=== PATIENT | female | born 1950 | race Caucasian/White ===

== ENCOUNTER → 2017-09-18 16:08 | Outpatient (CLI) | payer MEDICARE, OTHER, SELFPAY ==
[2017-09-18 16:27] LABS: Add Manual Diff / Slide Review NO; Basophils Percent Auto 0.6 % (0-2); Eosinophils Percent Auto 2.7 % (2-4); Hemoglobin 11.3 g/dL (12.0-16.0); Lymphocytes Percent Auto 19.8 % (25-40); Mean Corpuscular HGB Conc 33.3 % (30-36); Mean Corpuscular Hemoglobin 30.6 PG (26-34); Mean Corpuscular Volume 91.8 fL (80-100); Monocytes Percent Auto 7.2 % (3-14); Neutrophils Absolute Auto 4700 /uL (3000-5900); Neutrophils Percent Auto 69.7 % (50-75); Platelet Count 263 X10^3/uL (150-400); Red Cell Distribution Width 13.1 % (11.6-14.8); White Blood Cell Count 6.8 X10^3/uL (4.5-11.0)
[2017-09-18 16:41] LABS: Cholesterol 200 mg/dL (140-199); HDL Cholesterol 51 mg/dL (40-60); LDL Cholesterol Calculated 115 mg/dL (<100); Triglycerides 168 mg/dL (35-150)
[2017-09-18 16:43] LABS: Hemoglobin A1C% w Est Avg Glu 9.6 % (4.0-6.0)
[2017-09-18 18:00] LABS: Thyroid Stimulating Hormone 1.99 uIU/mL (0.47-4.68)
== END ==
PROVIDERS: Family Provider Family Medicine; PCP Family Medicine; Visit Provider Family Medicine
DX: E11.9 Type 2 diabetes mellitus without complications (principal)
CPT/HCPCS: 36415; 80061; 83036; 84443; 85025

== ENCOUNTER → 2018-06-09 15:57 | Outpatient (CLI) | payer MEDICARE, OTHER, SELFPAY ==
[2018-06-09 16:14] LABS: Add Manual Diff / Slide Review NO; Basophils Absolute Auto 100 /uL (0-100); Basophils Percent Auto 0.7 % (0-2); Eosinophils Absolute Auto 200 /uL (0-450); Eosinophils Percent Auto 2.7 % (2-4); Hematocrit 32.6 % (36-46); Hemoglobin 10.5 g/dL (12.0-16.0); Lymphocytes Absolute Auto 1300 /uL (1100-4500); Lymphocytes Percent Auto 14.9 % (25-40); Mean Corpuscular HGB Conc 32.4 % (30-36); Mean Corpuscular Hemoglobin 30.6 PG (26-34); Mean Corpuscular Volume 94.4 fL (80-100); Monocytes Absolute Auto 600 /uL (0-900); Monocytes Percent Auto 6.8 % (3-14); Neutrophils Absolute Auto 6400 /uL (1500-7000); Neutrophils Percent Auto 74.9 % (50-75); Platelet Count 411 X10^3/uL (150-400); Red Blood Cell Count 3.45 X10^6/uL (4.0-5.2); Red Cell Distribution Width 14.2 % (11.6-14.8); White Blood Cell Count 8.5 X10^3/uL (4.5-11.0)
[2018-06-09 16:25] LABS: Hemoglobin A1C% w Est Avg Glu 7.6 % (4.0-6.0)
[2018-06-09 18:02] LABS: Alanine Aminotransferase 27 IU/L (9-52); Albumin 3.8 g/dL (3.5-5.0); Albumin Globulin Ratio 1.4 (1.0-2.8); Alkaline Phosphatase 54 U/L (38-126); Aspartate Aminotransferase 24 IU/L (14-36); Bilirubin Total 0.4 mg/dL (0.2-1.3); Blood Urea Nitrogen 21 mg/dL (7-17); Calcium 9.2 mg/dL (8.4-10.2); Carbon Dioxide 29 mmol/L (22-32); Chloride 96 mmol/L (98-107); Estimated Glomerular Filt Rate > 60.0 mL/min (>60); Globulin 2.7 g/dL (1.7-4.1); Glucose 128 mg/dL (80-110); HEMOLYSIS < 15 (0-50); Potassium 3.6 mmol/L (3.4-5.1); Sodium 136 mmol/L (137-145); Total Protein 6.5 g/dL (6.3-8.2)
[2018-06-09 18:32] LABS: Thyroid Stimulating Hormone 1.25 uIU/mL (0.47-4.68)
== END ==
PROVIDERS: PCP Family Medicine; Visit Provider Family Medicine
DX: E11.9 Type 2 diabetes mellitus without complications (principal)
CPT/HCPCS: 36415; 80053; 83036; 84443; 85025

== ENCOUNTER → 2018-10-06 15:54 | Outpatient (CLI) | payer MEDICARE, OTHER, SELFPAY ==
[2018-10-06 18:38] LABS: Alanine Aminotransferase 9 IU/L (9-52); Albumin 4.7 g/dL (3.5-5.0); Albumin Globulin Ratio 1.3 (1.0-2.8); Alkaline Phosphatase 85 U/L (38-126); Aspartate Aminotransferase 27 IU/L (14-36); BUN Creatinine Ratio 23.3 (6-22); Bilirubin Total 0.5 mg/dL (0.2-1.3); Blood Urea Nitrogen 14 mg/dL (7-17); Calcium 11.1 mg/dL (8.4-10.2); Carbon Dioxide 32 mmol/L (22-32); Chloride 97 mmol/L (98-107); Estimated Glomerular Filt Rate > 60.0 mL/min (>60); Globulin 3.6 g/dL (1.7-4.1); Glucose 158 mg/dL (80-110); HEMOLYSIS 17 (0-50); Magnesium 1.5 mg/dL (1.6-2.3); Potassium 3.8 mmol/L (3.4-5.1); Sodium 140 mmol/L (137-145); Total Protein 8.3 g/dL (6.3-8.2)
[2018-10-06 19:07] LABS: Thyroid Stimulating Hormone 1.18 uIU/mL (0.47-4.68)
== END ==
PROVIDERS: PCP Family Medicine; Visit Provider Family Medicine
DX: E11.9 Type 2 diabetes mellitus without complications (principal)
CPT/HCPCS: 36415; 80053; 83036; 83735; 84443

== ENCOUNTER → 2020-03-16 15:12 | Outpatient (CLI) | payer MEDICARE, OTHER, SELFPAY ==
[2020-03-16 16:41] LABS: Hemoglobin A1C% w Est Avg Glu 12.3 % (4.0-6.0)
[2020-03-16 17:47] LABS: Alanine Aminotransferase 7 IU/L (<35); Albumin 4.2 g/dL (3.5-5.0); Albumin Globulin Ratio 1.3 (1.0-2.8); Alkaline Phosphatase 79 U/L (38-126); Aspartate Aminotransferase 16 IU/L (14-36); BUN Creatinine Ratio 19.7 (6-22); Bilirubin Total 0.5 mg/dL (0.2-1.3); Blood Urea Nitrogen 12 mg/dL (7-17); Calcium 9.4 mg/dL (8.4-10.2); Carbon Dioxide 28 mmol/L (22-32); Chloride 96 mmol/L (98-107); Cholesterol 239 mg/dL (140-199); Estimated Glomerular Filt Rate > 60.0 mL/min (>60); Globulin 3.3 g/dL (1.7-4.1); Glucose 356 mg/dL (80-110); HDL Cholesterol 40 mg/dL (40-60); HEMOLYSIS < 15 (0-50); Potassium 4.1 mmol/L (3.4-5.1); Sodium 131 mmol/L (137-145); Total Protein 7.5 g/dL (6.3-8.2)
[2020-03-16 17:50] LABS: Creatinine Urine Random 52.7 mg/dL
[2020-03-16 17:53] LABS: Microalbumi Creatinin Ratio Ur 85.3 ug/mg CR (<30); Microalbumin Urine Random 4.5 mg/dL (0-1.6)
[2020-03-16 18:01] LABS: Triglycerides 601 mg/dL (35-150)
== END ==
PROVIDERS: PCP Family Medicine; Referring Provider Family Medicine; Visit Provider Family Medicine
DX: E11.9 Type 2 diabetes mellitus without complications (principal); F32.9 Major depressive disorder, single episode, unspecified; F90.9 Attention-deficit hyperactivity disorder, unspecified type
CPT/HCPCS: 36415; 80053; 80061; 82043; 82570; 83036

== ENCOUNTER → 2020-05-18 13:36 | Outpatient (CLI) | payer MEDICARE, OTHER, SELFPAY ==
[2020-05-18 14:57] LABS: Add Manual Diff / Slide Review NO; Basophils Absolute Auto 0 /uL (0-100); Basophils Percent Auto 0.3 % (0-2); Eosinophils Absolute Auto 300 /uL (0-450); Eosinophils Percent Auto 4.6 % (2-4); Hematocrit 34.1 % (36-46); Hemoglobin 11.1 g/dL (12.0-16.0); Lymphocytes Absolute Auto 1500 /uL (1100-4500); Lymphocytes Percent Auto 20.1 % (25-40); Mean Corpuscular HGB Conc 32.5 % (30-36); Mean Corpuscular Hemoglobin 29.4 PG (26-34); Mean Corpuscular Volume 90.5 fL (80-100); Monocytes Absolute Auto 500 /uL (0-900); Monocytes Percent Auto 7.3 % (3-14); Neutrophils Absolute Auto 4900 /uL (1500-7000); Neutrophils Percent Auto 67.7 % (50-75); Platelet Count 293 X10^3/uL (150-400); Red Blood Cell Count 3.77 X10^6/uL (4.0-5.2); Red Cell Distribution Width 13.6 % (11.6-14.8); White Blood Cell Count 7.3 X10^3/uL (4.5-11.0)
[2020-05-18 15:11] LABS: Hemoglobin A1C% w Est Avg Glu 10.8 % (4.0-6.0)
== END ==
PROVIDERS: PCP Family Medicine; Referring Provider Family Medicine; Visit Provider Family Medicine
DX: E11.9 Type 2 diabetes mellitus without complications (principal); E78.5 Hyperlipidemia, unspecified; R80.9 Proteinuria, unspecified; Z79.4 Long term (current) use of insulin
CPT/HCPCS: 36415; 83036; 85025

== ENCOUNTER → 2020-08-09 15:37 | Outpatient (CLI) | payer MEDICARE, OTHER, SELFPAY ==
[2020-08-09 17:27] LABS: Add Manual Diff / Slide Review NO; Basophils Absolute Auto 0 /uL (0-100); Basophils Percent Auto 0.6 % (0-2); Eosinophils Absolute Auto 200 /uL (0-450); Eosinophils Percent Auto 3.2 % (2-4); Hematocrit 32.9 % (36-46); Hemoglobin 10.8 g/dL (12.0-16.0); Lymphocytes Absolute Auto 1000 /uL (1100-4500); Lymphocytes Percent Auto 16.3 % (25-40); Mean Corpuscular HGB Conc 32.9 % (30-36); Mean Corpuscular Hemoglobin 29.5 PG (26-34); Mean Corpuscular Volume 89.7 fL (80-100); Monocytes Absolute Auto 500 /uL (0-900); Monocytes Percent Auto 7.6 % (3-14); Neutrophils Absolute Auto 4600 /uL (1500-7000); Neutrophils Percent Auto 72.3 % (50-75); Platelet Count 286 X10^3/uL (150-400); Red Blood Cell Count 3.66 X10^6/uL (4.0-5.2); Red Cell Distribution Width 14.7 % (11.6-14.8); White Blood Cell Count 6.3 X10^3/uL (4.5-11.0)
[2020-08-09 17:40] LABS: Hemoglobin A1C% w Est Avg Glu 11.3 % (4.0-6.0)
== END ==
PROVIDERS: PCP Family Medicine; Referring Provider Family Medicine; Visit Provider Family Medicine
DX: D64.9 Anemia, unspecified (principal); E11.9 Type 2 diabetes mellitus without complications; G47.9 Sleep disorder, unspecified; Z79.4 Long term (current) use of insulin
CPT/HCPCS: 36415; 83036; 85025

== ENCOUNTER → 2021-03-14 15:44 | Outpatient (CLI) | payer MEDICARE, OTHER, SELFPAY ==
--- NOTE | 2021-03-14 15:48 | DI.RAD.S_ITS ---
PROCEDURE: XR ELBOW LT 2V INDICATIONS: left arm, shoulder, elbow pain after fall TECHNIQUE: 2 views of the elbow were acquired. COMPARISON: None. FINDINGS: Bones: No obvious fractures or dislocations. There is no true lateral image. The radial head is not visualized, in the elbow joint is not evaluated for infusion. No suspicious bony lesions. Soft tissues: No elbow joint effusion. No suspicious soft tissue calcifications. IMPRESSION: Suboptimal elbow films with no true lateral. Cannot evaluate the presence or absence of an elbow joint effusion. Radial head not visualized. No gross fractures or dislocations. Consider repeat study. Dictated by: Juan Godoy M.D. on 03/14/2021 at 16:36 Approved by: Juan Godoy M.D. on 03/14/2021 at 16:37
--- NOTE | 2021-03-14 15:48 | DI.RAD.S_ITS ---
PROCEDURE: XR HUMERUS LT 2V INDICATIONS: left arm, shoulder, elbow pain after fall TECHNIQUE: 2 views of the humerus were acquired. COMPARISON: None. FINDINGS: Bones: There is acute impacted and slightly comminuted fracture through left proximal humeral shaft/surgical neck with superior migration of humeral shaft in relation to humeral head. Moderate acromioclavicular joint and glenohumeral joint osteoarthritic changes are seen. No dislocation. No suspicious bony lesions. Soft tissues: No suspicious soft tissue calcifications. Soft tissue swelling surrounding proximal humeral shaft fracture site is seen. IMPRESSION: Acute comminuted, and impacted left proximal humeral shaft/neck fracture as above. Moderate shoulder joint osteoarthritis. Dictated by: Michel Duron M.D. on 03/14/2021 at 17:01 Approved by: Michel Duron M.D. on 03/14/2021 at 17:02
--- NOTE | 2021-03-14 15:48 | DI.RAD.S_ITS ---
PROCEDURE: XR SHOULDER LT MIN 2V INDICATIONS: left arm, shoulder, elbow pain after fall TECHNIQUE: 2 views of the shoulder were acquired. COMPARISON: [facility], CR, XR CHEST 1 VIEW, 01/11/2021, 17:53. [facility], CR, XR HUMERUS LT 2V, 03/14/2021, 15:54. FINDINGS: Bones: Impacted comminuted fracture of the left humeral head. There is mild displacement. There is inferior displacement of the humeral head in relation to the glenoid. This is concerning for dislocation. No suspicious bony lesions. Undulation of the left inferior lateral ribs likely nondisplaced fractures. Soft tissues: No suspicious soft tissue calcifications. IMPRESSION: Impacted comminuted fracture of the left humeral head. Suspect inferior and possible anterior dislocation. Left inferior lateral rib fractures. Dictated by: Clif Camilo M.D. on 03/14/2021 at 16:51 Approved by: Clif Camilo M.D. on 03/14/2021 at 16:56
[2021-03-14 17:17] LABS: Add Manual Diff / Slide Review NO; Basophils Absolute Auto 0 /uL (0-100); Basophils Percent Auto 0.3 % (0-2); Eosinophils Absolute Auto 200 /uL (0-450); Eosinophils Percent Auto 3.3 % (2-4); Hemoglobin 8.9 g/dL (12.0-16.0); Lymphocytes Absolute Auto 1200 /uL (1100-4500); Lymphocytes Percent Auto 16.2 % (25-40); Mean Corpuscular HGB Conc 31.9 % (30-36); Mean Corpuscular Hemoglobin 29.1 PG (26-34); Mean Corpuscular Volume 91.2 fL (80-100); Monocytes Absolute Auto 600 /uL (0-900); Monocytes Percent Auto 7.8 % (3-14); Neutrophils Absolute Auto 5300 /uL (1500-7000); Neutrophils Percent Auto 72.4 % (50-75); Platelet Count 340 X10^3/uL (150-400); Red Blood Cell Count 3.07 X10^6/uL (4.0-5.2); Red Cell Distribution Width 16.3 % (11.6-14.8); White Blood Cell Count 7.3 X10^3/uL (4.5-11.0)
[2021-03-14 18:17] LABS: Alanine Aminotransferase 10 IU/L (<35); Albumin 4.3 g/dL (3.5-5.0); Albumin Globulin Ratio 1.3 (1.0-2.8); Alkaline Phosphatase 90 U/L (38-126); Aspartate Aminotransferase 19 IU/L (14-36); BUN Creatinine Ratio 29.1 (6-22); Bilirubin Total 0.4 mg/dL (0.2-1.3); Blood Urea Nitrogen 23 mg/dL (7-17); Calcium 9.7 mg/dL (8.4-10.2); Carbon Dioxide 18 mmol/L (22-32); Chloride 109 mmol/L (98-107); Estimated Glomerular Filt Rate > 60.0 mL/min (>60); Globulin 3.4 g/dL (1.7-4.1); Glucose 128 mg/dL (80-110); HEMOLYSIS < 15 (0-50); Sodium 138 mmol/L (137-145); Total Protein 7.7 g/dL (6.3-8.2)
[2021-03-15 13:51] LABS: Iron 20 ug/dL (37-170)
[2021-03-15 13:59] LABS: Transferrin 246 mg/dL (206-381)
[2021-03-15 14:28] LABS: Ferritin 85 ng/mL (11-264)
== END ==
PROVIDERS: PCP Family Medicine; Referring Provider Family Medicine; Visit Provider Family Medicine
DX: S42.352A Displaced comminuted fracture of shaft of humerus, left arm, initial encounter for closed fracture (principal); S42.212A Unspecified displaced fracture of surgical neck of left humerus, initial encounter for closed fracture; S22.42XA Multiple fractures of ribs, left side, initial encounter for closed fracture; S40.022A Contusion of left upper arm, initial encounter; M19.012 Primary osteoarthritis, left shoulder; M25.512 Pain in left shoulder; M25.522 Pain in left elbow; M79.602 Pain in left arm; D64.9 Anemia, unspecified; E11.9 Type 2 diabetes mellitus without complications; E78.2 Mixed hyperlipidemia; F33.1 Major depressive disorder, recurrent, moderate; F41.9 Anxiety disorder, unspecified; Z79.4 Long term (current) use of insulin; W19.XXXA Unspecified fall, initial encounter
CPT/HCPCS: 36415; 73030; 73060; 73070; 80053; 85025

== ENCOUNTER 2021-03-14 16:48 | Emergency (ER) | payer MEDICARE, OTHER, SELFPAY ==
[2021-03-14] VITALS (8 sets, daily range): BP systolic 107–134; BP diastolic 55–60; PULSE 72–84; RESP 16–27; TEMP 37.2; O2SAT 95–100; BMI 25.3
[2021-03-14] MEDS: SODIUM CHLORIDE 0.9% 1,000 ML 125 ML IV (18:58)
--- NOTE | 2021-03-14 19:13 | ED_ITS ---
HPI - General Adult General Chief complaint: Extremity Injury, Upper Stated complaint: lt arm injury Time Seen by Provider: 03/14/21 17:44 Source: patient and family Mode of arrival: Ambulatory Limitations: no limitations History of Present Illness HPI narrative: 71-year-old female who was sent over by her primary doctor for evaluation of a abnormal shoulder x-ray. Patient states that a couple days ago she tripped while she was at home and landed on her left shoulder. She had pain afterwards. Started to develop swelling and bruising. She told family about it a couple days later. She had an appointment with her primary doctor already scheduled for today. During that visit she did mention that she was having swelling and pain to her left shoulder. X-rays for ordered. After they were resulted she was instructed come to the emergency department. She reports no other injuries from the event. Her pain is localized to the left shoulder. She does have swelling to her left shoulder. The rest left upper arms unremarkable. Patient is not on blood thinners. Related Data Previous Rx's Medication Instructions Recorded BD U/F Leila Pen Needle #20 each 09/22/18 insulin glargine 100 unit/mL (3 25 unit (0.25 mL) SUBCUT HS #5 unit 03/22/20 mL) subcutaneous pen (Lantus Solostar U-100 Insulin) phenytoin sodium extended 100 mg 100 mg PO DAILY #360 cap 09/13/20 capsule (Dilantin Extended) duloxetine 20 mg capsule,delayed 60 mg PO DAILY #90 cap 10/02/20 release omeprazole 20 mg capsule,delayed 20 mg PO QDAY #90 cap 12/31/20 release glipizide 10 mg tablet See Rx Instructions .ROUTE 01/15/21 .COMPLEX #120 tab clonazepam 2 mg tablet See Rx Instructions .ROUTE 01/23/21 .COMPLEX #90 tab gabapentin 300 mg capsule See Rx Instructions .ROUTE 02/12/21 .COMPLEX #270 cap glucometer and test strips #1 ea 03/14/21 hydrocodone 5 mg-acetaminophen 325 1 tab PO Q4-6H PRN #10 tab 03/14/21 mg tablet rosuvastatin 10 mg tablet (Crestor) 10 mg PO DAILY #90 tab 03/14/21 temazepam 15 mg capsule 15 mg PO BEDTIME PRN #30 cap 03/14/21 Allergies Allergy/AdvReac Type Severity Reaction Status Date / Time acarbose Allergy Mild MOOD CHANGE Verified 03/14/21 17:03 codeine Allergy Mild ITCH/RASH Verified 03/14/21 17:03 morphine AdvReac Mild VOMITING Verified 03/14/21 17:03 Review of Systems Constitutional Constitutional: Denies headache(s) ENT Ears, Nose, Mouth, and Throat: Denies headache(s) Cardiovascular Cardiovascular: Denies chest pain and Denies dyspnea Respiratory Respiratory: Denies dyspnea Gastrointestinal Gastrointestinal: Denies abdominal pain Musculoskeletal Musculoskeletal: Reports system reviewed and no additional complaints, except as documented Integumentary/Breasts Skin/Breast: Reports system reviewed and no additional complaints, except as documented Neurologic Neurologic: Reports system reviewed and no additional complaints, except as documented and Denies headache(s) Hematologic/Lymphatic On Anticoagulants: No Patient History Medical History Albuminuria Cervical stenosis of spine Chronic pain disorder Hyperlipidemia 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 Social History Smoking Status: Former smoker Smoking Status: Former smoker Substance Use Type: does not use Exam Initial Vital Signs Initial Vital Signs: Vital Signs Temperature 98.9 F 03/14/21 17:01 Pulse Rate 79 03/14/21 17:01 Respiratory Rate 16 03/14/21 17:01 Blood Pressure 119/58 L 03/14/21 17:01 Pulse Oximetry 100 03/14/21 17:01 Const General: cooperative and well developed Limitations: mental status not altered HENMD Head: normal to inspection and normocephalic Chest Chest: normal inspection of the chest Resp Effort & Inspection: normal respiratory effort Auscultation: clear to auscultation bilaterally Cardio Rate: regular rate Rhythm: regular rhythm Pulses: radial pulses present on the left GI Inspection: non-distended Palpation: soft Skin Other: Ecchymosis to the left upper extremity Neuro General: patient alert, patient awake, patient oriented x3 and moves all extremities Extrem Other: Tenderness to palpation with limited range of motion left shoulder. Her left clavicles unremarkable. Her left elbow left wrist unremarkable. Right upper extremity and bilateral lower extremities unremarkable. Psych Appearance: grossly normal and well kempt Procedures Orthopedic Splinting/Casting Injury #1: Side: left Upper Extremity Injury Location: shoulder Upper Extremity Immobilizer: sling/shoulder immobilizer Post splinting neuro exam: no change Post splinting vascular exam: no change Placed by: Nursing Course Orders Ordered: ED Orders 03/14/21 18:18 RT Consult Eval and Treat Now 03/14/21 18:46 COVID19 -Nasal swab/Pre-Proc Stat 03/14/21 19:37 CT UE LT wo con Stat Discontinued Medications Hydrocodone Bitart/Acetaminophen (Hydrocodone/Acet 5/325 Tablet) 1 tab PO NOW ONE Stop: 03/14/21 19:42 Last Admin: 03/14/21 19:49 Dose: 1 tab Documented by: MITZI Hydrocodone Bitart/Acetaminophen (Hydrocodone/Acet 5/325 Prepack) 1 bottle MISC SEEINSTR ONE Stop: 03/14/21 20:37 Last Admin: 03/14/21 20:52 Dose: 1 bottle Documented by: MITZI Sodium Chloride (Normal Saline 0.9%) 1,000 mls @ 125 mls/hr IV CONT NICOLE Last Infusion: 03/14/21 21:12 Dose: 0 mls/hr Documented by: Admin: 03/14/21 18:58 Dose: 125 mls/hr Documented by: SILVERIO Vital Signs Vital signs: Vital Signs - 8 hr 03/14/21 17:01 03/14/21 19:03 03/14/21 19:06 Temperature 98.9 F Pulse Rate 79 74 72 Respiratory Rate 16 27 H 24 Blood Pressure 119/58 L 125/60 Pulse Oximetry 100 99 99 03/14/21 19:30 03/14/21 19:31 03/14/21 20:10 Temperature Pulse Rate 74 76 84 Respiratory Rate 25 H 27 H 18 Blood Pressure 115/56 L Pulse Oximetry 97 97 95 03/14/21 20:13 03/14/21 20:30 Temperature Pulse Rate 78 74 Respiratory Rate 22 27 H Blood Pressure 134/55 L 107/58 L Pulse Oximetry 99 99 Medical Decision Making Lab Data Lab results reviewed: Yes I reviewed the patient's lab results. Labs: Lab Results 03/14/21 Range/Units 18:46 SARS-CoV-2 (PCR) Negative (Negative) Imaging Data CT UE: Radiologist's Impression: [address] [address] [address] Scan Report Signed Patient: Bridget Pratt MR#: [id number] : 1950 Acct:[id number] Age/Sex: 71 / F Date of Service: 03/14/21 Loc: ED Accession Number: [id number] ?? Procedure: CT UE LT wo con Ordering Provider: Edgard Mcpherson D.O. PROCEDURE:? CT UE LT WO CON ? INDICATIONS:? eval for shoulder dislocation ? TECHNIQUE:? Noncontrast 1-1.5 mm thick sections acquired from the acromioclavicular joint to the inferior scapula, with coronal and sagittal reformatting.? ? COMPARISON:? None. ? FINDINGS:? Image quality:? Excellent.? ? Bones:? There is a comminuted, impacted left proximal humerus fracture involving the surgical neck and head.? There are no significantly displaced head fragments.? There is inferior subluxation of the humeral head without radhika dislocation, seen best on the coronal view.? The glenoid fossa is intact.? There is a prominent anterior inferior subcortical cyst. ? The acromioclavicular joint remains intact.? Coracoclavicular interval is normal.? The visible rib arcs are intact. ? Soft tissues:? There is chondrocalcinosis in the glenohumeral joint.? There is heterogeneous soft tissue in the superior joint space, probably small hemarthrosis.? ? ? IMPRESSION:? 1. Impacted surgical head and neck fracture with comminution.? No significantly displaced fragments.? Neer one part fracture.? 2.? Inferior subluxation without radhika dislocation of the glenohumeral joint, probably due to hemarthrosis.? 3. There is considerable chondrocalcinosis and glenohumeral joint osteoarthritis.? ? Dictated by: Tg Rivas M.D. on 03/14/2021 at 21:43? on 03/14/2021 at 21:37 Approved by: Tg Rivas M.D. on 03/14/2021 at 21:43? Extremity x-ray #1: Radiologist's Impression: [address] [address] XRay Report Signed Patient: Bridget Pratt MR#: [id number] : 1950 Acct:[id number] Age/Sex: 71 / F Date of Service: 03/14/21 Loc: LAB Accession Number: [id number] ?? Procedure: XR humerus LT 2V Ordering Provider: Malvin Purdy MD PROCEDURE:? XR HUMERUS LT 2V ? INDICATIONS:? left arm, shoulder, elbow pain after fall ? TECHNIQUE:? 2 views of the humerus were acquired.? ? COMPARISON:? None. ? FINDINGS:? ? Bones:? There is acute impacted and slightly comminuted fracture through left proximal humeral shaft/surgical neck with superior migration of humeral shaft in relation to humeral head.? Moderate acromioclavicular joint and glenohumeral joint osteoarthritic changes are seen.? No dislocation.? No suspicious bony lesions.? ? Soft tissues:? No suspicious soft tissue calcifications.? Soft tissue swelling surrounding proximal humeral shaft fracture site is seen. ? IMPRESSION:? Acute comminuted, and impacted left proximal humeral shaft/neck fracture as above.? Moderate shoulder joint osteoarthritis. ? ? Dictated by: Michel Duron M.D. on 03/14/2021 at 17:01 ? ? Approved by: Michel Duron M.D. on 03/14/2021 at 17:02 Extremity x-ray #2: Radiologist's Impression: [place] [address] XRay Report Signed Patient: Bridget Pratt MR#: [id number] : 1950 Acct:[id number] Age/Sex: 71 / F Date of Service: 03/14/21 Loc: LAB Accession Number: [id number] ?? Procedure: XR shoulder LT min 2V Ordering Provider: Malvin Purdy MD PROCEDURE:? XR SHOULDER LT MIN 2V ? INDICATIONS:? left arm, shoulder, elbow pain after fall ? TECHNIQUE:? 2 views of the shoulder were acquired.? ? COMPARISON:? [facility], CR, XR CHEST 1 VIEW, 01/11/2021, 17:53.? [facility], CR, XR HUMERUS LT 2V, 03/14/2021, 15:54. ? FINDINGS:? ? Bones:? Impacted comminuted fracture of the left humeral head.? There is mild displacement.? There is inferior displacement of the humeral head in relation to the glenoid.? This is concerning for dislocation.? No suspicious bony lesions.? Undulation of the left inferior lateral ribs likely nondisplaced fractures. ? Soft tissues:? No suspicious soft tissue calcifications.? ? IMPRESSION:? Impacted comminuted fracture of the left humeral head.? Suspect inferior and possible anterior dislocation. ? Left inferior lateral rib fractures. ? ? Dictated by: Clif Camilo M.D. on 03/14/2021 at 16:51 ? ? Approved by: Clif Camilo M.D. on 03/14/2021 at 16:56?? MDM Narrative Medical decision making narrative: Patient is neurovascularly intact. The shoulder x-ray and humerus x-ray provided in this note for reference purposes only. They were obtained prior to the visit here in the ER. There is no obvious proximal humerus fracture. There was some concern about a subluxation versus dislocation of the humeral head. I did discuss the case with Dr. Herman on-call with Orthopedic surgery who recommended CT scan of her shoulder for more in-depth evaluation. CT scan was ordered which does show a inferior subluxation but not a dislocation. Dr. Herman did evaluate the CT scan and the x-rays. Patient was placed in a sling. Was given care instructions and follow-up instructions. Both patient and family bedside expressed understanding and agree with this plan. Discharge Plan Departure Patient Disposition: Home Clinical Impression: Fracture of proximal end of left humerus Instructions: How to Use a Sling, DI for Shoulder Fracture Activity Restrictions/Additional Instructions: The sling should be worn when you are up and walking around and also sleeping. You can take it off to shower. Contact the orthopedic providers at the number provided below for follow-up. Return to the emergency department for any new or worsening symptoms. Prescriptions: New hydrocodone-acetaminophen 5-325 mg tablet 1 tab PO Q4-6H PRN (Reason: pain) Qty: 10 0RF No Action (DME) BD U/F Leila Pen Needle [id number] Qty: 20 3RF Dose Instruction: As directed Rx Instructions: Use with Lantus once a day. 09/22/18 Lantus Solostar U-100 Insulin 100 unit/mL (3 mL) insulin pen 25 unit SUBCUT HS Qty: 5 5RF phenytoin sodium extended [Dilantin Extended] 100 mg capsule 100 mg PO DAILY Qty: 360 5RF duloxetine 20 mg capsule,delayed release(DR/EC) 60 mg PO DAILY Qty: 90 5RF omeprazole 20 mg capsule,delayed release(DR/EC) 20 mg PO QDAY Qty: 90 3RF glipizide 10 mg tablet See Rx Instructions .ROUTE .COMPLEX Qty: 120 0RF Dose Instruction: take 1 tablet by mouth twice a day Rx Instructions: take 1 tablet by mouth twice a day clonazepam 2 mg tablet See Rx Instructions .ROUTE .COMPLEX Qty: 90 0RF Dose Instruction: take 1 tablet by mouth three times a day PLUS MAY TAKE ONE EXTRA TAB FOR ANXIETY ATTACKS DIRECTED Rx Instructions: take 1 tablet by mouth three times a day PLUS MAY TAKE ONE EXTRA TAB FOR ANXIETY ATTACKS DIRECTED gabapentin 300 mg capsule See Rx Instructions .ROUTE .COMPLEX Qty: 270 0RF Dose Instruction: take 1 tablet by mouth three times a day Rx Instructions: take 1 tablet by mouth three times a day temazepam 15 mg capsule 15 mg PO BEDTIME PRN (Reason: sleep) Qty: 30 0RF rosuvastatin [Crestor] 10 mg tablet 10 mg PO DAILY Qty: 90 3RF (DME) glucometer and test strips See Rx Instructions .Route .MEDSUPPLY Qty: 1 12RF Rx Instructions: As directed Referrals: Malvin Purdy MD [Primary Care Provider] - Sebastian Herman MD [Physician] -
[2021-03-14 19:14] LABS: COVID19 -Nasal RAPID Negative (Negative)
--- NOTE | 2021-03-14 19:37 | DI.CT.S_ITS ---
PROCEDURE: CT UE LT WO CON INDICATIONS: eval for shoulder dislocation TECHNIQUE: Noncontrast 1-1.5 mm thick sections acquired from the acromioclavicular joint to the inferior scapula, with coronal and sagittal reformatting. COMPARISON: None. FINDINGS: Image quality: Excellent. Bones: There is a comminuted, impacted left proximal humerus fracture involving the surgical neck and head. There are no significantly displaced head fragments. There is inferior subluxation of the humeral head without radhika dislocation, seen best on the coronal view. The glenoid fossa is intact. There is a prominent anterior inferior subcortical cyst. The acromioclavicular joint remains intact. Coracoclavicular interval is normal. The visible rib arcs are intact. Soft tissues: There is chondrocalcinosis in the glenohumeral joint. There is heterogeneous soft tissue in the superior joint space, probably small hemarthrosis. IMPRESSION: 1. Impacted surgical head and neck fracture with comminution. No significantly displaced fragments. Neer one part fracture. 2. Inferior subluxation without radhika dislocation of the glenohumeral joint, probably due to hemarthrosis. 3. There is considerable chondrocalcinosis and glenohumeral joint osteoarthritis. Dictated by: Tg Rivas M.D. on 03/14/2021 at 21:43 on 03/14/2021 at 21:37 Approved by: Tg Rivas M.D. on 03/14/2021 at 21:43
[2021-03-14] MEDS: HYDROCODONE/ACET 5/325 TABLET 1 TAB PO (19:49)
[2021-03-14] MEDS: HYDROCODONE/ACET 5/325 PREPACK 1 BOTTLE MISC (20:52)
== END 2021-03-14 21:11 | disposition home or self-care (01) ==
PROVIDERS: Emergency Provider Emergency Medicine; PCP Family Medicine
DX: S42.292A Other displaced fracture of upper end of left humerus, initial encounter for closed fracture (principal); Z88.5 Allergy status to narcotic agent; Z88.8 Allergy status to other drugs, medicaments and biological substances; Z87.891 Personal history of nicotine dependence; Z20.822 Contact with and (suspected) exposure to COVID-19; W18.40XA Slipping, tripping and stumbling without falling, unspecified, initial encounter; Y92.009 Unspecified place in unspecified non-institutional (private) residence as the place of occurrence of the external cause; S42.352A Displaced comminuted fracture of shaft of humerus, left arm, initial encounter for closed fracture; S42.212A Unspecified displaced fracture of surgical neck of left humerus, initial encounter for closed fracture; S22.42XA Multiple fractures of ribs, left side, initial encounter for closed fracture; S40.022A Contusion of left upper arm, initial encounter; M19.012 Primary osteoarthritis, left shoulder; M25.512 Pain in left shoulder; M25.522 Pain in left elbow; M79.602 Pain in left arm; D64.9 Anemia, unspecified; E11.9 Type 2 diabetes mellitus without complications; E78.2 Mixed hyperlipidemia; F33.1 Major depressive disorder, recurrent, moderate; F41.9 Anxiety disorder, unspecified; Z79.4 Long term (current) use of insulin; W19.XXXA Unspecified fall, initial encounter
CPT/HCPCS: 36415; 73030; 73060; 73070; 73200; 80053; 82728; 83540; 84466; 85025; 87635; 99284; C9803

== ENCOUNTER 2021-04-04 09:28 | Day surgery (SDC) | payer MEDICARE, OTHER, SELFPAY ==
[2021-04-04] VITALS (8 sets, daily range): BP systolic 121–168; BP diastolic 61–88; PULSE 72–97; RESP 12–18; TEMP 36–36.6; O2SAT 92–95; BMI 25.8
[2021-04-04 10:01] LABS: COVID19 -Nasal RAPID Negative (Negative)
[2021-04-04] MEDS: LACTATED RINGERS 1,000 ML 42 ML IV (11:06)
--- NOTE | 2021-04-04 11:39 | PM.PREOP ---
Pre-operative Note COVID-19 COVID-19 status: Negative Result date/Date tested (Pos, Neg/Pending): 04/03/21 Interval Note History & Physical reviewed/Exam performed by Physician: Yes Changes to H&P: No ASA Class (for procedural sedation): II
[2021-04-04] MEDS: LIDOCAINE 4% SOLN 50 ML 20 ML TOP (11:48)
[2021-04-04] MEDS: MIDAZOLAM 5 MG/5 ML VIAL IV (11:58)
[2021-04-04] MEDS: fentaNYL 250 MCG/5 ML INJ IV (11:58)
[2021-04-04] MEDS: DEXTROSE 5%-LACTATED RINGERS 1,000 ML 100 ML IV (12:08)
--- NOTE | 2021-04-04 13:22 | PM.OP.EC ---
Operative Date/Time/Diagnoses Date of procedure: 04/04/21 Time of procedure: 13:22 Pre-op diagnosis: Anemia Post-op diagnosis: same Procedure & Clinicians Study performed: EGD and colonoscopy Same procedure as scheduled: Yes Indications: Anemia Surgeon: Trav Irwin Procedure Notes SCOAP/Timeout: Yes Procedure in detail: Procedure in detail: A timeout was performed. Bite blocked was placed. Patient was positioned in the supine position due to her left shoulder injury. We attempted to administer sedation with Versed and fentanyl however after 8 mg of Versed and 100 micrograms of fentanyl with no observable change in her mental status we elected to consult anesthesia for for deeper sedation. Once the patient was completely sedated the endoscope was inserted through the bite block and passed through the esophagus and stomach. There was an acute angulation of the antrum towards the pylorus. Despite multiple attempts the scope could not be passed through the pylorus. Scope was then withdrawn. Next we repositioned the patient for a colonoscopy. A digital rectal exam was performed and was normal. The colonoscope was inserted and advanced to the cecum. The appendiceal could not be identified due to the inadequate prep despite suctioning and irrigation. The scope was slowly withdrawn. No abnormalities were noted however the prep was inadequate to completely visualize the colon. Scope was retroflexed in the rectum and no abnormalities were noted. EBL: 0 Scope withdrawal time: NA Post-procedure Disposition: PACU
== END 2021-04-04 14:45 | disposition home or self-care (01) ==
PROVIDERS: PCP Family Medicine; Referring Provider Surgery; Visit Provider Surgery
PROC: 0DJ08ZZ Inspection of Upper Intestinal Tract, Via Natural or Artificial Opening Endoscopic (ICD-10-PCS; CPT 43235; principal; 2021-04-04 10:45)
PROC: 0DJD8ZZ Inspection of Lower Intestinal Tract, Via Natural or Artificial Opening Endoscopic (ICD-10-PCS; CPT 45378; 2021-04-04 10:45)
DX: D64.9 Anemia, unspecified (principal); E78.5 Hyperlipidemia, unspecified; G89.4 Chronic pain syndrome
CPT/HCPCS: 43235; 45378; 82962; 87635; J2250; J3010; J7121

== ENCOUNTER → 2021-07-02 08:26 | Outpatient (ROUT) | payer MEDICARE, OTHER, SELFPAY ==
[2021-07-02 08:52] LABS: Add Manual Diff / Slide Review NO; Basophils Absolute Auto 0 /uL (0-100); Basophils Percent Auto 0.4 % (0-2); Eosinophils Absolute Auto 200 /uL (0-450); Eosinophils Percent Auto 3.5 % (2-4); Hematocrit 36.2 % (36-46); Hemoglobin 11.3 g/dL (12.0-16.0); Lymphocytes Absolute Auto 900 /uL (1100-4500); Lymphocytes Percent Auto 17.2 % (25-40); Mean Corpuscular HGB Conc 31.3 % (30-36); Mean Corpuscular Hemoglobin 26.4 PG (26-34); Mean Corpuscular Volume 84.2 fL (80-100); Monocytes Absolute Auto 400 /uL (0-900); Monocytes Percent Auto 8.8 % (3-14); Neutrophils Absolute Auto 3500 /uL (1500-7000); Neutrophils Percent Auto 70.1 % (50-75); Platelet Count 214 X10^3/uL (150-400); Red Cell Distribution Width 19.8 % (11.6-14.8)
[2021-07-02 09:00] LABS: Hemoglobin A1C% w Est Avg Glu 7.6 % (4.0-6.0)
[2021-07-02 09:15] LABS: Alanine Aminotransferase 8 IU/L (<35); Albumin Globulin Ratio 1.3 (1.0-2.8); Alkaline Phosphatase 65 U/L (38-126); Aspartate Aminotransferase 20 IU/L (14-36); BUN Creatinine Ratio 28.3 (6-22); Bilirubin Total 0.4 mg/dL (0.2-1.3); Blood Urea Nitrogen 15 mg/dL (7-17); Calcium 9.7 mg/dL (8.4-10.2); Carbon Dioxide 26 mmol/L (22-32); Chloride 103 mmol/L (98-107); Estimated Glomerular Filt Rate > 60.0 mL/min (>60); Globulin 3.2 g/dL (1.7-4.1); Glucose 215 mg/dL (80-110); HEMOLYSIS < 15 (0-50); Potassium 3.8 mmol/L (3.4-5.1); Sodium 137 mmol/L (137-145); Total Protein 7.2 g/dL (6.3-8.2)
== END ==
PROVIDERS: PCP Family Medicine; Visit Provider Internal Medicine
DX: E11.9 Type 2 diabetes mellitus without complications (principal); I10 Essential (primary) hypertension
CPT/HCPCS: 36415; 80053; 83036; 85025

== ENCOUNTER → 2021-07-16 07:53 | Outpatient (ROUT) | payer MEDICARE, OTHER, SELFPAY ==
[2021-07-16 08:58] LABS: Thyroid Stimulating Hormone 4.89 uIU/mL (0.47-4.68)
== END ==
PROVIDERS: PCP Family Medicine; Visit Provider Nurse Practitioner Family
DX: E11.9 Type 2 diabetes mellitus without complications (principal); D64.9 Anemia, unspecified; G47.00 Insomnia, unspecified
CPT/HCPCS: 36415; 84443

== ENCOUNTER → 2021-11-05 08:29 | Outpatient (ROUT) | payer MEDICARE, OTHER, SELFPAY ==
[2021-11-05 09:33] LABS: Add Manual Diff / Slide Review NO; Basophils Absolute Auto 0 /uL (0-100); Basophils Percent Auto 0.6 % (0-2); Eosinophils Absolute Auto 300 /uL (0-450); Eosinophils Percent Auto 5.3 % (2-4); Hemoglobin 11.9 g/dL (12.0-16.0); Lymphocytes Absolute Auto 1100 /uL (1100-4500); Lymphocytes Percent Auto 18.9 % (25-40); Mean Corpuscular HGB Conc 33.1 % (30-36); Mean Corpuscular Hemoglobin 29.2 PG (26-34); Mean Corpuscular Volume 88.4 fL (80-100); Monocytes Absolute Auto 500 /uL (0-900); Monocytes Percent Auto 8.9 % (3-14); Neutrophils Absolute Auto 4000 /uL (1500-7000); Neutrophils Percent Auto 66.3 % (50-75); Platelet Count 225 X10^3/uL (150-400); Red Blood Cell Count 4.08 X10^6/uL (4.0-5.2); Red Cell Distribution Width 13.4 % (11.6-14.8)
[2021-11-05 09:44] LABS: Alanine Aminotransferase 9 IU/L (<35); Albumin 3.9 g/dL (3.5-5.0); Albumin Globulin Ratio 1.2 (1.0-2.8); Alkaline Phosphatase 70 U/L (38-126); Aspartate Aminotransferase 19 IU/L (14-36); BUN Creatinine Ratio 22.9 (6-22); Bilirubin Total 0.4 mg/dL (0.2-1.3); Blood Urea Nitrogen 16 mg/dL (7-17); Calcium 9.3 mg/dL (8.4-10.2); Carbon Dioxide 29 mmol/L (22-32); Chloride 103 mmol/L (98-107); Cholesterol 212 mg/dL (140-199); Estimated Glomerular Filt Rate > 60 mL/min (>60); Globulin 3.2 g/dL (1.7-4.1); Glucose 90 mg/dL (80-110); HDL Cholesterol 45 mg/dL (40-60); HEMOLYSIS < 15 (0-50); LDL Cholesterol Calculated 138 mg/dL (<100); Potassium 3.9 mmol/L (3.4-5.1); Sodium 139 mmol/L (137-145); Total Protein 7.1 g/dL (6.3-8.2); Triglycerides 145 mg/dL (35-150)
[2021-11-05 09:45] LABS: Phenytoin / Dilantin < 3.0 ug/mL (10-20)
[2021-11-05 09:50] LABS: Hemoglobin A1C% w Est Avg Glu 8.3 % (4.0-6.0)
[2021-11-05 10:13] LABS: Thyroid Stimulating Hormone 5.18 uIU/mL (0.47-4.68)
[2021-11-05 10:31] LABS: Vitamin B12 375 pg/mL (239-931)
== END ==
PROVIDERS: PCP Family Medicine; Visit Provider Nurse Practitioner Family
DX: E11.9 Type 2 diabetes mellitus without complications (principal); F41.9 Anxiety disorder, unspecified; I50.9 Heart failure, unspecified; G40.909 Epilepsy, unspecified, not intractable, without status epilepticus; D64.9 Anemia, unspecified; Z79.899 Other long term (current) drug therapy
CPT/HCPCS: 36415; 80053; 80061; 80185; 82607; 83036; 84443; 85025

== ENCOUNTER 2022-07-21 10:06 | Emergency (ER) | payer MEDICARE, OTHER, SELFPAY ==
[2022-07-21 10:09] VITALS: BP 125/64; PULSE 71; RESP 18; TEMP 36.2; O2SAT 94
--- NOTE | 2022-07-21 10:24 | DI.RAD.S_ITS ---
PROCEDURE: XR ANKLE LT MIN 3V INDICATIONS: fall TECHNIQUE: 3 views of the ankle were acquired. COMPARISON: None. FINDINGS: Bones: No fractures or dislocations. Ankle mortise is normally aligned. No suspicious bony lesions. Soft tissues: No tibiotalar joint effusion. Achilles tendon appears normal. IMPRESSION: No definite acute radiographic abnormality. If the patient cannot bear weight, consider cross sectional imaging now. If pain persists with conservative management, consider cross sectional imaging such as CT or MRI for further assessment. Dictated by: Amos Coronado M.D. on 07/21/2022 at 11:20 Approved by: Amos Coronado M.D. on 07/21/2022 at 11:21
--- NOTE | 2022-07-21 11:24 | ED.FALL ---
HPI - Fall General Chief Complaint: Fall Stated Complaint: slipped injured LT foot ankle Time Seen by Provider: 07/21/22 11:24 Source: patient Mode of arrival: Ambulatory Limitations: no limitations History of Present Illness HPI Narrative: Patient is a 72-year-old female who is here for evaluation of injuries that she sustained when she twisted her left ankle. Does have a history of diabetes. The event occurred this morning. She states that she thinks that she slipped on something on the floor. She twisted her left ankle and then fell on it. Other than her left foot and ankle she reports no other injuries from the event. Did not hit her head. She has been ambulatory on it since then but has developed a bruise on the top of her foot. Related Data Home Medications Medication Instructions Recorded Confirmed insulin glargine 100 unit/mL (3 18 unit SUBCUT BID 04/03/21 05/01/21 mL) subcutaneous pen (Lantus Solostar U-100 Insulin) Previous Rx's Medication Instructions Recorded phenytoin sodium extended 100 mg 100 mg PO DAILY #360 caps 09/13/20 capsule (Dilantin Extended) duloxetine 20 mg capsule,delayed 60 mg PO DAILY #90 caps 10/02/20 release omeprazole 20 mg capsule,delayed 20 mg PO QDAY #90 caps 12/31/20 release gabapentin 300 mg capsule See Rx Instructions .Route 02/12/21 .COMPLEX #270 caps glucometer and test strips #1 ea 03/14/21 rosuvastatin 10 mg tablet (Crestor) 10 mg PO DAILY #90 tabs 03/14/21 blood sugar diagnostic (Blood #50 ea 03/15/21 Glucose Test strips) sodium sul 1.479 gram-potas ch See Rx Instructions PO PER PKG DIR 03/26/21 0.188 gram-magnes sul 0.225 gram #24 tabs tablet (Sutab) BD U/F Leila Pen Needle #20 ea 03/27/21 clonazepam 2 mg tablet See Rx Instructions .Route 04/18/21 .COMPLEX #90 tabs trazodone 50 mg tablet 50 mg PO BEDTIME PRN insomnia #30 04/18/21 tabs Parking Permit... #2 ea 04/22/21 Allergies Allergy/AdvReac Type Severity Reaction Status Date / Time acarbose Allergy Mild MOOD CHANGE Verified 07/21/22 10:23 codeine Allergy Mild ITCH/RASH Verified 07/21/22 10:23 morphine AdvReac Mild VOMITING Verified 07/21/22 10:23 Review of Systems Constitutional Constitutional: Reports system reviewed and no additional complaints, except as documented Musculoskeletal Musculoskeletal: Reports system reviewed and no additional complaints, except as documented Integumentary/Breasts Comments: Bruise to the top of left foot Neurologic Neurologic: Reports system reviewed and no additional complaints, except as documented Hematologic/Lymphatic On Anticoagulants: No Patient History Medical History Albuminuria Cervical stenosis of spine Chronic pain disorder Hyperlipidemia 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 Social History household members: family Smoking Status: Former smoker alcohol intake: never Smoking Status: Former smoker alcohol intake frequency: 0-2 drinks per day Substance Use Type: does not use Exam Initial Vital Signs Initial Vital Signs: Vital Signs Temperature 97.1 F L 07/21/22 10:09 Pulse Rate 71 07/21/22 10:09 Respiratory Rate 18 07/21/22 10:09 Blood Pressure 125/64 07/21/22 10:09 Pulse Oximetry 94 07/21/22 10:09 Oxygen Delivery Method Room Air 07/21/22 10:09 Cardio Pulses: dorsalis pedis present on the left Skin Other: Bruising to the top of the left foot Neuro Sensory Exam: no sensory deficits noted Extrem Other: Patient has no knee nor left proximal fibula tenderness. Has no tenderness along the Achilles tendon. Does have some swelling along the lateral malleolus. Can flex and extend her ankle. Course Orders Ordered: ED Orders 07/21/22 10:24 XR ankle LT min 3V Stat Vital Signs Vital signs: Vital Signs - 8 hr 07/21/22 10:09 Temperature 97.1 F L Pulse Rate 71 Respiratory Rate 18 Blood Pressure 125/64 Pulse Oximetry 94 Oxygen Delivery Method Room Air MDM - Fall Imaging Data Extremity x-ray #1: Radiologist's Impression: PROCEDURE:? XR ANKLE LT MIN 3V ? INDICATIONS:? fall ? TECHNIQUE:? 3 views of the ankle were acquired.? ? COMPARISON:? None. ? FINDINGS:? ? Bones:? No fractures or dislocations.? Ankle mortise is normally aligned.? No suspicious bony lesions.? ? Soft tissues:? No tibiotalar joint effusion.? Achilles tendon appears normal.? ? ? IMPRESSION:? No definite acute radiographic abnormality.? If the patient cannot bear weight, consider cross sectional imaging now.? If pain persists with conservative management, consider cross sectional imaging such as CT or MRI for further assessment. [facility] Narrative Medical decision making narrative: Patient is neurovascularly intact. X-ray shows no signs of a fracture. She does have a bruise of the top of the left foot. She has been ambulatory. We did discuss an ankle brace that her family states they will purchase for her after they are discharged. No further workup required in the emergency department she can take Tylenol and ibuprofen. We also discussed conservative measures such as heat and ice and elevation. Patient was given return precautions. She expressed understanding and agreement. Discharge Plan Departure Patient Disposition: Home Clinical Impression: Left ankle sprain, Contusion of foot, left Instructions: DI for Ankle Sprain, How To Perform RICE (Rest, Ice, Compress, Elevate) Activity Restrictions/Additional Instructions: You can take Tylenol or ibuprofen for any discomfort. I do recommend that you keep your foot elevated and also keep ice over the area. There were no fractures noted on the x-rays you can walk on your foot/ankle as tolerated. An ankle brace maybe helpful like we discussed. Return to the emergency department for new or worsening symptoms. Prescriptions: No Action phenytoin sodium extended [Dilantin Extended] 100 mg capsule 100 mg PO DAILY Qty: 360 5RF duloxetine 20 mg capsule,delayed release(DR/EC) 60 mg PO DAILY Qty: 90 5RF omeprazole 20 mg capsule,delayed release(DR/EC) 20 mg PO QDAY Qty: 90 3RF gabapentin 300 mg capsule See Rx Instructions .ROUTE .COMPLEX Qty: 270 0RF Dose Instruction: take 1 tablet by mouth three times a day Rx Instructions: take 1 tablet by mouth three times a day (DME) Blood Glucose Test Strip See Rx Instructions .Route Qty: 50 12RF Rx Instructions: As directed to test blood sugar daily (DME) BD U/F Leila Pen Needle [id number] Qty: 20 3RF Dose Instruction: As directed Rx Instructions: Use with Lantus once a day. clonazepam 2 mg tablet See Rx Instructions .ROUTE .COMPLEX Qty: 90 0RF Dose Instruction: take 1 tablet by mouth three times a day PLUS MAY TAKE ONE EXTRA TAB FOR ANXIETY ATTACKS DIRECTED Rx Instructions: take 1 tablet by mouth three times a day PLUS MAY TAKE ONE EXTRA TAB FOR ANXIETY ATTACKS DIRECTED (DME) Parking Permit... See Rx Instructions .Route .MEDSUPPLY Qty: 2 0RF Rx Instructions: I find this patient to be medically disabled and qualified for Disabled Parking as indicated ,and ,signed, on the accompanying Disabled Parking Application for individuals. rosuvastatin [Crestor] 10 mg tablet 10 mg PO DAILY Qty: 90 3RF (DME) glucometer and test strips See Rx Instructions .Route .MEDSUPPLY Qty: 1 12RF Rx Instructions: As directed trazodone 50 mg tablet 50 mg PO BEDTIME PRN (Reason: insomnia) Qty: 30 3RF Sutab 1.479-0.188- 0.225 gram tablet See Rx Instructions PO PER PKG DIR Qty: 24 0RF Rx Instructions: Per instructions provided at Dr. Irwin's office. Lantus Solostar U-100 Insulin 100 unit/mL (3 mL) insulin pen 18 unit SUBCUT BID Referrals: Adryan Perez ARNP [Primary Care Provider] - Stand Alone Forms: Patient Portal/API
[2022-07-21 11:40] VITALS: BP 140/63; PULSE 80; RESP 18; O2SAT 99
== END 2022-07-21 11:55 | disposition home or self-care (01) ==
PROVIDERS: Emergency Provider Emergency Medicine; PCP Nurse Practitioner Family
DX: S93.402A Sprain of unspecified ligament of left ankle, initial encounter (principal); S90.32XA Contusion of left foot, initial encounter; W18.30XA Fall on same level, unspecified, initial encounter
CPT/HCPCS: 73610; 99283

== ENCOUNTER → 2023-02-03 07:58 | Outpatient (ROUT) | payer MEDICARE, OTHER, SELFPAY ==
[2023-02-03 08:41] LABS: Magnesium 1.5 mg/dL (1.6-2.3)
== END ==
PROVIDERS: PCP Nurse Practitioner Family; Visit Provider Nurse Practitioner Family
DX: R25.2 Cramp and spasm (principal)
CPT/HCPCS: 36415; 83735

== ENCOUNTER → 2023-08-18 07:51 | Outpatient (ROUT) | payer MEDICARE, OTHER, SELFPAY ==
[2023-08-18 08:36] LABS: Add Manual Diff / Slide Review NO; Basophils Absolute Auto 0 /uL (0-100); Basophils Percent Auto 0.4 % (0-2); Eosinophils Absolute Auto 400 /uL (0-450); Eosinophils Percent Auto 7.2 % (2-4); Hematocrit 32.3 % (36-46); Hemoglobin 10.7 g/dL (12.0-16.0); Lymphocytes Absolute Auto 1200 /uL (1100-4500); Lymphocytes Percent Auto 19.2 % (25-40); Mean Corpuscular HGB Conc 33.3 % (30-36); Mean Corpuscular Hemoglobin 29.8 PG (26-34); Mean Corpuscular Volume 89.7 fL (80-100); Monocytes Absolute Auto 600 /uL (0-900); Neutrophils Absolute Auto 3800 /uL (1500-7000); Neutrophils Percent Auto 63.2 % (50-75); Platelet Count 223 X10^3/uL (150-400); Red Cell Distribution Width 13.4 % (11.6-14.8); White Blood Cell Count 6.1 X10^3/uL (4.5-11.0)
[2023-08-18 08:58] LABS: HEMOLYSIS < 15 (0-50); Iron 72 ug/dL (37-170)
[2023-08-18 09:00] LABS: BUN Creatinine Ratio 19.4 (6-22); Blood Urea Nitrogen 13 mg/dL (7-17); Calcium 9.7 mg/dL (8.4-10.2); Carbon Dioxide 28 mmol/L (22-32); Chloride 107 mmol/L (98-107); Estimated Glomerular Filt Rate > 60 mL/min (>60); Glucose 110 mg/dL (80-110); HEMOLYSIS < 15 (0-50); Magnesium 1.7 mg/dL (1.6-2.3); Potassium 4.1 mmol/L (3.4-5.1); Sodium 140 mmol/L (137-145)
[2023-08-18 09:10] LABS: Percent Iron Saturation 34 % (15-50); Total Iron Binding Capacity 210 ug/dL (265-497); Transferrin 145 mg/dL (206-381)
== END ==
PROVIDERS: PCP Nurse Practitioner Family; Visit Provider Registered Nurse
DX: R25.2 Cramp and spasm (principal)
CPT/HCPCS: 36415; 80048; 83540; 83550; 83735; 85025

== ENCOUNTER → 2023-10-06 07:41 | Outpatient (ROUT) | payer MEDICARE, OTHER, SELFPAY ==
[2023-10-06 08:46] LABS: Hemoglobin A1C% w Est Avg Glu 8.9 % (4.0-6.0)
[2023-10-06 08:53] LABS: BUN Creatinine Ratio 13.9 (6-22); Blood Urea Nitrogen 10 mg/dL (7-17); Carbon Dioxide 34 mmol/L (22-32); Chloride 104 mmol/L (98-107); Estimated Glomerular Filt Rate > 60 mL/min (>60); Glucose 123 mg/dL (80-110); HEMOLYSIS < 15 (0-50); Potassium 4.1 mmol/L (3.4-5.1); Sodium 137 mmol/L (137-145)
== END ==
PROVIDERS: PCP Nurse Practitioner Family; Visit Provider Internal Medicine
DX: E11.9 Type 2 diabetes mellitus without complications (principal)
CPT/HCPCS: 36415; 80048; 83036

== ENCOUNTER → 2024-01-13 08:03 | Outpatient (ROUT) | payer MEDICARE, OTHER, SELFPAY ==
[2024-01-13 08:45] LABS: Add Manual Diff / Slide Review NO; Basophils Absolute Auto 0 /uL (0-100); Basophils Percent Auto 0.4 % (0-2); Eosinophils Absolute Auto 400 /uL (0-450); Eosinophils Percent Auto 7.2 % (2-4); Hematocrit 32.6 % (36-46); Hemoglobin 10.9 g/dL (12.0-16.0); Lymphocytes Absolute Auto 1100 /uL (1100-4500); Lymphocytes Percent Auto 19.6 % (25-40); Mean Corpuscular HGB Conc 33.4 % (30-36); Mean Corpuscular Hemoglobin 29.5 PG (26-34); Mean Corpuscular Volume 88.4 fL (80-100); Monocytes Absolute Auto 600 /uL (0-900); Monocytes Percent Auto 10.3 % (3-14); Neutrophils Absolute Auto 3500 /uL (1500-7000); Neutrophils Percent Auto 62.5 % (50-75); Platelet Count 229 X10^3/uL (150-400); Red Blood Cell Count 3.69 X10^6/uL (4.0-5.2); Red Cell Distribution Width 13.5 % (11.6-14.8); White Blood Cell Count 5.6 X10^3/uL (4.5-11.0)
[2024-01-13 08:46] LABS: Hemoglobin A1C% w Est Avg Glu 6.6 % (4.0-6.0)
[2024-01-13 09:10] LABS: Alanine Aminotransferase 7 IU/L (<35); Albumin 3.6 g/dL (3.5-5.0); Albumin Globulin Ratio 1.3 (1.0-2.8); Alkaline Phosphatase 64 U/L (38-126); Aspartate Aminotransferase 16 IU/L (14-36); BUN Creatinine Ratio 13.5 (6-22); Bilirubin Total 0.3 mg/dL (0.2-1.3); Blood Urea Nitrogen 10 mg/dL (7-17); Calcium 9.8 mg/dL (8.4-10.2); Carbon Dioxide 31 mmol/L (22-32); Chloride 103 mmol/L (98-107); Estimated Glomerular Filt Rate > 60 mL/min (>60); Globulin 2.7 g/dL (1.7-4.1); Glucose 49 mg/dL (80-110); HEMOLYSIS < 15 (0-50); Potassium 3.9 mmol/L (3.4-5.1); Sodium 136 mmol/L (137-145); Total Protein 6.3 g/dL (6.3-8.2)
[2024-01-13 17:37] LABS: Phenytoin / Dilantin < 3.0 ug/mL (10-20)
== END ==
PROVIDERS: PCP Nurse Practitioner Family; Visit Provider Nurse Practitioner Family
DX: I10 Essential (primary) hypertension (principal)
CPT/HCPCS: 36415; 80053; 80185; 83036; 85025

== ENCOUNTER → 2024-09-21 08:25 | Outpatient (ROUT) | payer MEDICARE, OTHER, SELFPAY ==
[2024-09-21 08:46] LABS: Hematocrit 34.3 % (36-46); Hemoglobin 11.3 g/dL (12.0-16.0); Mean Corpuscular HGB Conc 32.9 % (30-36); Mean Corpuscular Hemoglobin 29.1 PG (26-34); Mean Corpuscular Volume 88.5 fL (80-100); Platelet Count 232 X10^3/uL (150-400); Red Blood Cell Count 3.88 X10^6/uL (4.0-5.2); Red Cell Distribution Width 13.7 % (11.6-14.8); White Blood Cell Count 4.8 X10^3/uL (4.5-11.0)
[2024-09-21 08:51] LABS: BUN Creatinine Ratio 13.7 (6-22); Blood Urea Nitrogen 10 mg/dL (7-17); Calcium 9.4 mg/dL (8.4-10.2); Carbon Dioxide 31 mmol/L (22-32); Chloride 104 mmol/L (98-107); Estimated Glomerular Filt Rate > 60 mL/min (>60); Glucose 68 mg/dL (70-99); HEMOLYSIS < 15 (0-50); Magnesium 1.8 mg/dL (1.6-2.3); Sodium 140 mmol/L (137-145)
== END ==
LOC: LAB 08:26
PROVIDERS: PCP Nurse Practitioner Family; Visit Provider Registered Nurse
DX: E11.9 Type 2 diabetes mellitus without complications (principal); D64.9 Anemia, unspecified
CPT/HCPCS: 36415; 80048; 83036; 83735; 85027

== ENCOUNTER → 2024-09-28 07:26 | Outpatient (ROUT) | payer MEDICARE, OTHER, SELFPAY ==
[2024-09-28 07:57] LABS: Hematocrit 33.3 % (36-46); Hemoglobin 11.1 g/dL (12.0-16.0)
[2024-09-28 08:27] LABS: BUN Creatinine Ratio 15.1 (6-22); Blood Urea Nitrogen 11 mg/dL (7-17); Calcium 9.8 mg/dL (8.4-10.2); Carbon Dioxide 31 mmol/L (22-32); Chloride 103 mmol/L (98-107); Estimated Glomerular Filt Rate > 60 mL/min (>60); Glucose 85 mg/dL (70-99); HEMOLYSIS < 15 (0-50); Magnesium 1.6 mg/dL (1.6-2.3); Potassium 3.9 mmol/L (3.4-5.1); Sodium 140 mmol/L (137-145)
[2024-09-28 08:40] LABS: Hemoglobin A1C% w Est Avg Glu 6.9 % (4.0-6.0)
== END ==
PROVIDERS: PCP Nurse Practitioner Family; Visit Provider Registered Nurse
DX: E11.9 Type 2 diabetes mellitus without complications (principal); D64.9 Anemia, unspecified
CPT/HCPCS: 36415; 80048; 83036; 83735; 85014; 85018